=== PATIENT | female | born 1955 | race Caucasian/White ===

== ENCOUNTER → 2017-08-23 14:00 | Outpatient (CLI) | payer OTHER, SELFPAY ==
--- NOTE | 2017-08-23 | DI.RAD.S_ITS ---
PROCEDURE: XR HAND RT MIN 3V INDICATIONS: LEFT AND RIGHT HAND PAIN TECHNIQUE: 3 views of the hand(s) acquired. COMPARISON: None. FINDINGS: Bones: No fractures or dislocations. Carpal bones are normally aligned. No suspicious bony lesions. Mild degenerative joint disease at first carpometacarpal joint and first metacarpophalangeal joint. Soft tissues: No suspicious soft tissue calcifications. IMPRESSION: Mild degenerative joint disease. Dictated by: Danette Lyon M.D. on 08/23/2017 at 15:19 Approved by: Danette Lyon M.D. on 08/23/2017 at 15:19
--- NOTE | 2017-08-23 | DI.RAD.S_ITS ---
PROCEDURE: XR HAND LT MIN 3V INDICATIONS: LEFT AND RIGHT HAND PAIN TECHNIQUE: 3 views of the hand(s) acquired. COMPARISON: None. FINDINGS: Bones: No fractures or dislocations. Carpal bones are normally aligned. No suspicious bony lesions. There is mild degenerative joint disease at first carpal metacarpal joint. No bony erosions. Soft tissues: No suspicious soft tissue calcifications. IMPRESSION: Mild degenerative joint disease. Dictated by: Danette Lyon M.D. on 08/23/2017 at 15:19 Approved by: Danette Lyon M.D. on 08/23/2017 at 15:20
== END ==
PROVIDERS: Family Provider Internal Medicine; PCP Internal Medicine; Visit Provider Internal Medicine
DX: M18.0 Bilateral primary osteoarthritis of first carpometacarpal joints (principal); M19.041 Primary osteoarthritis, right hand; M79.641 Pain in right hand; M79.642 Pain in left hand
CPT/HCPCS: 73130

== ENCOUNTER → 2018-04-18 09:38 | Outpatient (CLI) | payer OTHER, SELFPAY | PROVIDERS: PCP Internal Medicine; Visit Provider Internal Medicine | DX: M81.0 Age-related osteoporosis without current pathological fracture (principal); Z78.0 Asymptomatic menopausal state; C50.919 Malignant neoplasm of unspecified site of unspecified female breast | CPT/HCPCS: 77080 ==

== ENCOUNTER → 2018-05-01 09:41 | Outpatient (CLI) | payer OTHER, SELFPAY ==
[2018-05-01 10:09] LABS: Estimated Glomerular Filt Rate > 60.0 mL/min (>60)
== END ==
PROVIDERS: PCP Internal Medicine; Visit Provider Internal Medicine
DX: C50.211 Malignant neoplasm of upper-inner quadrant of right female breast (principal)
CPT/HCPCS: 36415; 82565

== ENCOUNTER → 2018-10-10 11:49 | Outpatient (CLI) | payer OTHER, SELFPAY ==
[2018-10-10 13:52] LABS: Estimated Glomerular Filt Rate > 60.0 mL/min (>60)
== END ==
PROVIDERS: PCP Internal Medicine; Visit Provider Internal Medicine
DX: C50.211 Malignant neoplasm of upper-inner quadrant of right female breast (principal)
CPT/HCPCS: 36415; 82565

== ENCOUNTER → 2019-04-23 12:45 | Outpatient (CLI) | payer MEDICARE, SELFPAY | PROVIDERS: PCP Internal Medicine; Referring Provider Internal Medicine; Visit Provider Internal Medicine | DX: M81.0 Age-related osteoporosis without current pathological fracture (principal); Z78.0 Asymptomatic menopausal state; Z85.3 Personal history of malignant neoplasm of breast | CPT/HCPCS: 77080 ==

== ENCOUNTER → 2019-04-30 15:43 | Outpatient (ROUT) | payer MEDICARE, SELFPAY | PROVIDERS: PCP Internal Medicine; Visit Provider Student in an Organized Health Care Education/Training Program | DX: N39.0 Urinary tract infection, site not specified (principal) | CPT/HCPCS: 87086 ==

== ENCOUNTER → 2019-05-03 18:45 | Outpatient (ROUT) | payer MEDICARE, SELFPAY ==
[2019-05-03 19:12] LABS: Add Manual Diff / Slide Review NO; Basophils Absolute Auto 0 /uL (0-100); Basophils Percent Auto 0.6 % (0-2); Eosinophils Absolute Auto 100 /uL (0-450); Eosinophils Percent Auto 1.5 % (2-4); Hematocrit 41.6 % (36-46); Hemoglobin 13.8 g/dL (12.0-16.0); Lymphocytes Absolute Auto 1300 /uL (1100-4500); Lymphocytes Percent Auto 21.3 % (25-40); Mean Corpuscular HGB Conc 33.2 % (30-36); Mean Corpuscular Hemoglobin 30.6 PG (26-34); Mean Corpuscular Volume 92.1 fL (80-100); Monocytes Absolute Auto 400 /uL (0-900); Monocytes Percent Auto 7.2 % (3-14); Neutrophils Absolute Auto 4300 /uL (1500-7000); Neutrophils Percent Auto 69.4 % (50-75); Platelet Count 262 X10^3/uL (150-400); Red Blood Cell Count 4.52 X10^6/uL (4.0-5.2); Red Cell Distribution Width 13.3 % (11.6-14.8); White Blood Cell Count 6.2 X10^3/uL (4.5-11.0)
[2019-05-03 19:39] LABS: Aspartate Aminotransferase 34 IU/L (14-36); BUN Creatinine Ratio 28.2 (6-22); Blood Urea Nitrogen 22 mg/dL (7-17); Calcium 10.2 mg/dL (8.4-10.2); Carbon Dioxide 29 mmol/L (22-32); Chloride 102 mmol/L (98-107); Cholesterol 232 mg/dL (140-199); Estimated Glomerular Filt Rate > 60.0 mL/min (>60); Glucose 91 mg/dL (80-110); HDL Cholesterol 78 mg/dL (40-60); HEMOLYSIS < 15 (0-50); LDL Cholesterol Calculated 138 mg/dL (<100); Potassium 4.7 mmol/L (3.4-5.1); Sodium 137 mmol/L (137-145); Triglycerides 81 mg/dL (35-150)
[2019-05-03 20:09] LABS: TSH w/ Reflex to FT4 2.03 uIU/mL (0.47-4.68)
== END ==
PROVIDERS: PCP Internal Medicine; Visit Provider Internal Medicine
DX: R53.83 Other fatigue (principal); E78.2 Mixed hyperlipidemia; I10 Essential (primary) hypertension
CPT/HCPCS: 80048; 80061; 84443; 84450; 85025

== ENCOUNTER → 2019-09-12 18:44 | Outpatient (ROUT) | payer MEDICARE, SELFPAY | PROVIDERS: PCP Internal Medicine; Visit Provider Internal Medicine | DX: N39.0 Urinary tract infection, site not specified (principal) | CPT/HCPCS: 87086 ==

== ENCOUNTER → 2019-09-20 11:04 | Outpatient (CLI) | payer MEDICARE, SELFPAY ==
--- NOTE | 2019-09-20 | DI.MRI.S_ITS ---
PROCEDURE: MR LUMBAR SPINE WO/W CON INDICATIONS: symptoms involving the genitourinary system TECHNIQUE: Noncontrast sagittal T1 spin echo and T2 fast spin echo, sagittal STIR, axial T1 and T2 fast spin echo through the lumbar spine. In cases with scoliosis, additional coronal T2 fast spin echo may be performed. After the administration of contrast, sagittal and axial T1 spin echo with fat saturation through the lumbar spine. COMPARISON: [facility], , L-SPINE W&WO CONTRAST, 01/12/2017, 7:53. FINDINGS: Image quality: Excellent. Alignment and curvature: Mild levoconvex scoliotic curvature is noted. No focal AP alignment abnormality is seen. Marrow: Marrow is of normal overall signal. No acute vertebral body compression fractures. No suspicious marrow enhancement. Spinal cord: Conus medullaris terminates at the L1 level. Visualized spinal cord demonstrates normal signal, without suspicious enhancement. Paraspinous soft tissues: No paravertebral masses or abnormal enhancement. T12-L1: Moderate loss of disc height is seen. Loss of disc signal is seen. No significant disc bulge is seen. No significant neural foraminal or central canal narrowing can be seen. Stable from the prior study. L1-L2: Normal appearance. L2-L3: Mild loss of disc height is seen. Loss of disc signal is seen. Bridging endplate osteophytes are seen. Mild to moderate disc bulge is seen. Mild facet joint hypertrophy is seen. Moderate bilateral neural foraminal narrowing is seen, right worse than left. Mild central canal narrowing is seen. Mild progression compared to the prior. L3-L4: At least moderate loss of disc height is seen on the right side. Reactive marrow endplate changes are seen, which demonstrate mixed T1 weighted and T2-weighted signal, and are attributed to a combination of edema and fatty metaplasia (Modic type I and Modic type II changes). Moderate disc bulge is seen, which is eccentric to the right. Mild to moderate facet hypertrophy is seen. Mild to moderate bilateral neural foraminal narrowing is seen. Mild to moderate central canal narrowing is seen. There is been mild progression compared to 2017. L4-L5: Moderate loss of disc height is seen. Loss of disc signal is seen. Moderate disc bulge is seen, which is eccentric to the right. Mild to moderate facet hypertrophy is seen. There is at least moderate bilateral neural foraminal narrowing seen, left worse than right. There is a mild degree of compression seen upon the exiting nerve roots, left worse than right. Moderate central canal narrowing is seen. Mild progression compared to 2017. L5-S1: Krpk-nn-adofhgke loss of disc height and disc signal can be seen. At least moderate disc bulge is seen, which is eccentric to the left. Moderate facet hypertrophy is seen, left worse than right. At least moderate bilateral neural foraminal narrowing can be seen. There is a degree of compression seen upon the exiting nerve roots. Minimal central canal narrowing is seen. IMPRESSION: Multiple levels of lumbar spine degenerative change are seen, which are overall slightly progressed compared to 2017. No abnormal enhancement is seen. Dictated by: Ran Prakash M.D. on 09/20/2019 at 11:53 Approved by: Ran Prakash M.D. on 09/20/2019 at 11:58
== END ==
PROVIDERS: PCP Internal Medicine; Referring Provider Internal Medicine; Visit Provider Internal Medicine
DX: R39.9 Unspecified symptoms and signs involving the genitourinary system (principal); M51.36 Other intervertebral disc degeneration, lumbar region
CPT/HCPCS: 72158; A9579

== ENCOUNTER → 2019-10-25 09:26 | Outpatient (CLI) | payer MEDICARE, SELFPAY ==
[2019-10-25 10:17] LABS: Alanine Aminotransferase 21 IU/L (<35); Albumin 4.4 g/dL (3.5-5.0); Albumin Globulin Ratio 1.7 (1.0-2.8); Alkaline Phosphatase 53 U/L (38-126); Aspartate Aminotransferase 31 IU/L (14-36); Bilirubin Total 0.6 mg/dL (0.2-1.3); Blood Urea Nitrogen 21 mg/dL (7-17); Calcium 9.6 mg/dL (8.4-10.2); Carbon Dioxide 33 mmol/L (22-32); Chloride 103 mmol/L (98-107); Estimated Glomerular Filt Rate > 60.0 mL/min (>60); Globulin 2.6 g/dL (1.7-4.1); Glucose 100 mg/dL (80-110); HEMOLYSIS < 15 (0-50); Potassium 4.6 mmol/L (3.4-5.1); Sodium 140 mmol/L (137-145)
== END ==
PROVIDERS: PCP Internal Medicine; Referring Provider Internal Medicine; Visit Provider Internal Medicine
DX: C50.211 Malignant neoplasm of upper-inner quadrant of right female breast (principal)
CPT/HCPCS: 36415; 80053

== ENCOUNTER → 2020-04-24 12:49 | Outpatient (CLI) | payer MEDICARE, SELFPAY | PROVIDERS: PCP Internal Medicine; Referring Provider Internal Medicine; Visit Provider Internal Medicine | DX: M85.852 Other specified disorders of bone density and structure, left thigh (principal); Z78.0 Asymptomatic menopausal state; C50.211 Malignant neoplasm of upper-inner quadrant of right female breast; C50.212 Malignant neoplasm of upper-inner quadrant of left female breast; Z17.0 Estrogen receptor positive status [ER+] | CPT/HCPCS: 77080 ==

== ENCOUNTER → 2020-06-24 15:14 | Outpatient (ROUT) | payer MEDICARE, SELFPAY ==
[2020-06-24 15:39] LABS: Add Manual Diff / Slide Review NO; Basophils Absolute Auto 0 /uL (0-100); Basophils Percent Auto 0.5 % (0-2); Eosinophils Absolute Auto 200 /uL (0-450); Eosinophils Percent Auto 3.1 % (2-4); Hematocrit 39.2 % (36-46); Hemoglobin 13.1 g/dL (12.0-16.0); Lymphocytes Absolute Auto 1400 /uL (1100-4500); Lymphocytes Percent Auto 24.6 % (25-40); Mean Corpuscular HGB Conc 33.6 % (30-36); Mean Corpuscular Volume 92.3 fL (80-100); Monocytes Absolute Auto 400 /uL (0-900); Monocytes Percent Auto 6.4 % (3-14); Neutrophils Absolute Auto 3600 /uL (1500-7000); Neutrophils Percent Auto 65.4 % (50-75); Platelet Count 229 X10^3/uL (150-400); Red Blood Cell Count 4.25 X10^6/uL (4.0-5.2); Red Cell Distribution Width 13.3 % (11.6-14.8); White Blood Cell Count 5.5 X10^3/uL (4.5-11.0)
[2020-06-24 15:55] LABS: BUN Creatinine Ratio 42.2 (6-22); Blood Urea Nitrogen 27 mg/dL (7-17); Calcium 9.8 mg/dL (8.4-10.2); Carbon Dioxide 30 mmol/L (22-32); Chloride 102 mmol/L (98-107); Cholesterol 210 mg/dL (140-199); Estimated Glomerular Filt Rate > 60.0 mL/min (>60); Glucose 96 mg/dL (80-110); HDL Cholesterol 75 mg/dL (40-60); HEMOLYSIS < 15 (0-50); LDL Cholesterol Calculated 126 mg/dL (<100); Potassium 4.3 mmol/L (3.4-5.1); Sodium 138 mmol/L (137-145); Triglycerides 47 mg/dL (35-150)
[2020-06-24 16:09] LABS: Hemoglobin A1C% w Est Avg Glu 5.3 % (4.0-6.0)
[2020-06-24 16:31] LABS: Vitamin D 25 Hydroxy (D3) 39.1 ng/mL (30.0-100.0)
[2020-06-24 16:37] LABS: Vitamin B12 995 pg/mL (239-931)
[2020-06-24 17:40] LABS: TSH w/ Reflex to FT4 1.21 uIU/mL (0.47-4.68)
[2020-06-25 14:16] LABS: Albumin 3.9 g/dL (2.9-4.4); Alpha-1-Globulin 0.3 g/dL (0.0-0.4); Alpha-2-Globulin 0.7 g/dL (0.4-1.0); Gamma Globulin 0.9 g/dL (0.4-1.8); Protein, Total 6.9 g/dL (6.0-8.5)
== END ==
PROVIDERS: PCP Internal Medicine; Visit Provider Internal Medicine
DX: I10 Essential (primary) hypertension (principal); E53.8 Deficiency of other specified B group vitamins; E03.9 Hypothyroidism, unspecified; D47.2 Monoclonal gammopathy; R73.01 Impaired fasting glucose; E78.2 Mixed hyperlipidemia; E55.9 Vitamin D deficiency, unspecified
CPT/HCPCS: 80048; 80061; 82306; 82607; 83036; 84155; 84165; 84443; 85025

== ENCOUNTER → 2020-07-24 09:46 | Outpatient (CLI) | payer MEDICARE, SELFPAY ==
[2020-07-24 11:26] LABS: Alanine Aminotransferase 20 IU/L (<35); Albumin 4.1 g/dL (3.5-5.0); Albumin Globulin Ratio 1.5 (1.0-2.8); Alkaline Phosphatase 73 U/L (38-126); Aspartate Aminotransferase 28 IU/L (14-36); BUN Creatinine Ratio 31.3 (6-22); Bilirubin Total 0.5 mg/dL (0.2-1.3); Blood Urea Nitrogen 21 mg/dL (7-17); Calcium 9.9 mg/dL (8.4-10.2); Carbon Dioxide 30 mmol/L (22-32); Chloride 102 mmol/L (98-107); Estimated Glomerular Filt Rate > 60.0 mL/min (>60); Globulin 2.8 g/dL (1.7-4.1); Glucose 95 mg/dL (80-110); HEMOLYSIS < 15 (0-50); Potassium 4.7 mmol/L (3.4-5.1); Sodium 138 mmol/L (137-145); Total Protein 6.9 g/dL (6.3-8.2)
== END ==
PROVIDERS: PCP Internal Medicine; Referring Provider Internal Medicine; Visit Provider Internal Medicine
DX: C50.211 Malignant neoplasm of upper-inner quadrant of right female breast (principal); C50.212 Malignant neoplasm of upper-inner quadrant of left female breast; Z17.0 Estrogen receptor positive status [ER+]
CPT/HCPCS: 36415; 80053

== ENCOUNTER → 2020-11-17 10:02 | Outpatient (CLI) | payer MEDICARE, OTHER, SELFPAY ==
[2020-11-17 16:06] LABS: Estimated Glomerular Filt Rate > 60.0 mL/min (>60)
== END ==
PROVIDERS: PCP Internal Medicine; Referring Provider Student in an Organized Health Care Education/Training Program; Visit Provider Student in an Organized Health Care Education/Training Program
DX: N89.8 Other specified noninflammatory disorders of vagina (principal)
CPT/HCPCS: 36415; 82565

== ENCOUNTER → 2020-11-20 11:53 | Outpatient (CLI) | payer MEDICARE, OTHER, SELFPAY ==
--- NOTE | 2020-11-20 | DI.CT.S_ITS ---
PROCEDURE: CT ABDOMEN PELVIS W CON INDICATIONS: pelvic mass TECHNIQUE: After the administration of oral and IV contrast, axial sections were acquired from the lung bases to the pubic symphysis. Coronal and sagittal reformats were performed. For radiation dose reduction, the following was used: automated exposure control, adjustment of mA and/or kV according to patient size. COMPARISON: None. FINDINGS: Image quality: Excellent. Lung bases: No consolidation or pleural effusion. Heart: No significant findings. ABDOMEN: Liver: Normal contour. 1.6 cm hypoattenuating lesion in the left hepatic lobe, likely representing a cyst. Gallbladder: No wall thickening or pericholecystic fluid appreciated. Biliary ducts: No appreciable dilatation. Pancreas: Normal contour without contour deforming mass. Spleen: Normal contour. A splenule is noted. Adrenal Glands: No nodularity Kidneys and Ureters: Symmetric enhancement without evidence of obstructive uropathy. Right lower pole cortical hypoattenuating lesion, likely representing a cyst. Stomach and Bowel: No evidence of intestinal obstruction. Normal appendix. Sigmoid diverticulosis. Peritoneum: No abnormal intraperitoneal fluid. No free air. Ventral Wall: No hernia. Abdominal Nodes: No retroperitoneal or mesenteric adenopathy by size criteria. Vessels: Aorta and inferior vena cava are normal in size. PELVIS: Pelvic Organs: No significant abnormality. Bladder: Smooth contour. Pelvic Nodes: No enlarged lymph nodes. Miscellaneous: No inguinal hernias are seen. Bones: No acute abnormality. Multilevel degenerative changes of the lumbar spine most prominent at L3 through S1. IMPRESSION: No significant abnormality. Dictated by: Solitario Vásquez M.D. on 11/20/2020 at 13:58 Approved by: Solitario Vásquez M.D. on 11/20/2020 at 14:04
== END ==
PROVIDERS: PCP Internal Medicine; Referring Provider Student in an Organized Health Care Education/Training Program; Visit Provider Student in an Organized Health Care Education/Training Program
DX: N89.8 Other specified noninflammatory disorders of vagina (principal); K76.9 Liver disease, unspecified; K57.30 Diverticulosis of large intestine without perforation or abscess without bleeding
CPT/HCPCS: 74177

== ENCOUNTER → 2021-01-02 10:25 | Outpatient (CLI) | payer MEDICARE, OTHER, SELFPAY | PROVIDERS: PCP Internal Medicine; Visit Provider Physician Assistant | DX: N34.3 Urethral syndrome, unspecified (principal) | CPT/HCPCS: 87077; 87086; 87186 ==

== ENCOUNTER → 2021-02-26 10:42 | Outpatient (CLI) | payer MEDICARE, OTHER, SELFPAY ==
[2021-02-26 12:09] LABS: Alanine Aminotransferase 18 IU/L (<35); Albumin 4.3 g/dL (3.5-5.0); Albumin Globulin Ratio 1.7 (1.0-2.8); Alkaline Phosphatase 56 U/L (38-126); Aspartate Aminotransferase 26 IU/L (14-36); BUN Creatinine Ratio 27.5 (6-22); Bilirubin Total 0.4 mg/dL (0.2-1.3); Blood Urea Nitrogen 19 mg/dL (7-17); Calcium 9.8 mg/dL (8.4-10.2); Carbon Dioxide 31 mmol/L (22-32); Chloride 104 mmol/L (98-107); Estimated Glomerular Filt Rate > 60.0 mL/min (>60); Globulin 2.6 g/dL (1.7-4.1); Glucose 116 mg/dL (80-110); HEMOLYSIS < 15 (0-50); Potassium 4.7 mmol/L (3.4-5.1); Sodium 139 mmol/L (137-145); Total Protein 6.9 g/dL (6.3-8.2)
== END ==
PROVIDERS: PCP Internal Medicine; Referring Provider Internal Medicine; Visit Provider Internal Medicine
DX: M81.0 Age-related osteoporosis without current pathological fracture (principal); C50.211 Malignant neoplasm of upper-inner quadrant of right female breast; Z17.0 Estrogen receptor positive status [ER+]; C50.212 Malignant neoplasm of upper-inner quadrant of left female breast
CPT/HCPCS: 36415; 80053

== ENCOUNTER → 2021-05-13 14:03 | Outpatient (CLI) | payer MEDICARE, OTHER, SELFPAY | PROVIDERS: PCP Internal Medicine; Referring Provider Internal Medicine; Visit Provider Internal Medicine | DX: M81.0 Age-related osteoporosis without current pathological fracture (principal) | CPT/HCPCS: 77080 ==

== ENCOUNTER → 2021-08-21 11:44 | Outpatient (CLI) | payer MEDICARE, OTHER, SELFPAY ==
[2021-08-21 13:32] LABS: Alanine Aminotransferase 22 IU/L (<35); Albumin 4.5 g/dL (3.5-5.0); Albumin Globulin Ratio 1.7 (1.0-2.8); Alkaline Phosphatase 69 U/L (38-126); Aspartate Aminotransferase 30 IU/L (14-36); BUN Creatinine Ratio 33.8 (6-22); Bilirubin Total 0.4 mg/dL (0.2-1.3); Blood Urea Nitrogen 24 mg/dL (7-17); Calcium 10.1 mg/dL (8.4-10.2); Carbon Dioxide 30 mmol/L (22-32); Chloride 101 mmol/L (98-107); Estimated Glomerular Filt Rate > 60 mL/min (>60); Globulin 2.6 g/dL (1.7-4.1); Glucose 95 mg/dL (80-110); HEMOLYSIS < 15 (0-50); Potassium 4.7 mmol/L (3.4-5.1); Sodium 139 mmol/L (137-145); Total Protein 7.1 g/dL (6.3-8.2)
== END ==
PROVIDERS: PCP Internal Medicine; Referring Provider Internal Medicine; Visit Provider Internal Medicine
DX: M81.0 Age-related osteoporosis without current pathological fracture (principal); C50.211 Malignant neoplasm of upper-inner quadrant of right female breast; Z17.0 Estrogen receptor positive status [ER+]; C50.212 Malignant neoplasm of upper-inner quadrant of left female breast
CPT/HCPCS: 36415; 80053

== ENCOUNTER → 2021-11-05 08:49 | Outpatient (CLI) | payer MEDICARE, OTHER, SELFPAY | PROVIDERS: PCP Internal Medicine; Visit Provider Nurse Practitioner Family | DX: J02.9 Acute pharyngitis, unspecified (principal) | CPT/HCPCS: 87070 ==

== ENCOUNTER → 2022-03-08 11:44 | Outpatient (CLI) | payer MEDICARE, OTHER, SELFPAY ==
[2022-03-08 12:55] LABS: Alanine Aminotransferase 23 IU/L (<35); Albumin 4.2 g/dL (3.5-5.0); Albumin Globulin Ratio 1.4 (1.0-2.8); Alkaline Phosphatase 70 U/L (38-126); Aspartate Aminotransferase 26 IU/L (14-36); BUN Creatinine Ratio 34.4 (6-22); Bilirubin Total 0.3 mg/dL (0.2-1.3); Blood Urea Nitrogen 21 mg/dL (7-17); Carbon Dioxide 29 mmol/L (22-32); Chloride 102 mmol/L (98-107); Estimated Glomerular Filt Rate > 60 mL/min (>60); Globulin 2.9 g/dL (1.7-4.1); Glucose 94 mg/dL (80-110); HEMOLYSIS < 15 (0-50); Potassium 4.6 mmol/L (3.4-5.1); Sodium 137 mmol/L (137-145); Total Protein 7.1 g/dL (6.3-8.2)
== END ==
PROVIDERS: PCP Internal Medicine; Referring Provider Internal Medicine; Visit Provider Internal Medicine
DX: M81.0 Age-related osteoporosis without current pathological fracture (principal); C50.211 Malignant neoplasm of upper-inner quadrant of right female breast; Z17.0 Estrogen receptor positive status [ER+]; C50.212 Malignant neoplasm of upper-inner quadrant of left female breast
CPT/HCPCS: 36415; 80053

== ENCOUNTER → 2022-05-17 12:51 | Outpatient (CLI) | payer MEDICARE, OTHER, SELFPAY ==
--- NOTE | 2022-05-17 13:06 | DI.DEXA.S_ITS ---
Bone Density Report Name: TIERRA CORRALES Age: 66 Sex: Female Ethnicity: White Date of : 1955 Indication: osteopenia; monitoring treatment; Referring Provider: UNSPECIFIED Study: Bone densitometry was performed. Exam Date: May 17, 2022 Accession number: [id number] Bone Density: Region BMD T-score Z-score Classification AP Spine(L1-L4) 1.217 1.5 3.4 Normal Femoral Neck (Left) 0.588 -2.4 -0.7 Osteopenia Total Hip (Left) 0.720 -1.8 -0.5 Osteopenia Femoral Neck (Right) 0.606 -2.2 -0.6 Osteopenia Total Hip (Right) 0.798 -1.2 0.1 Osteopenia Total Hip Mean 0.759 -1.5 -0.2 Osteopenia World Health Organization criteria for BMD impression classify patients as: Normal (T-score at or above -1.0), Osteopenia (T-score between -1.0 and -2.5), or Osteoporosis (T-score at or below -2.5). 10-year Fracture Risk: FRAX not reported because: Treated for osteoporosis Previous Exams: -- Region Exam Age BMD T-score BMD Change BMD Change Date g/cm2 vs Baseline vs Previous -- AP Spine (L1-L4) 05/17/2022 66 1.217 1.5 -0.050 (-4.0%)# -0.050 (-4.0%)# 05/13/2021 65 1.267 2.0 Total Hip(Left) 05/17/2022 66 0.720 -1.8 -0.028 (-3.7%)# -0.028 (-3.7%)# 05/13/2021 65 0.749 -1.6 Total Hip(Right) 05/17/2022 66 0.798 -1.2 0.014 (1.8%)# 0.014 (1.8%)# 05/13/2021 65 0.785 -1.3 -- *Denotes significance at 95% confidence level, LSC for AP Spine = 0.022 g/cm2, LSC for Total Hip = 0.027 g/cm2 # Denotes dissimilar scan types or analysis methods Impression: The patient has low bone mass, based on the Left Femoral Neck T-score. No significant bone loss was observed. Discussion: PATIENT UNDER TREATMENT WITH NO SIGNIFICANT BMD LOSS SINCE LAST EXAM. In an untreated patient, BMD typically declines with age. A lack of decline or gain is usually a sign that treatment is efficacious and fracture risk is reduced. It is important to ask patients whether they are taking their medications and to encourage continued and appropriate compliance with their osteoporosis therapies to reduce fracture risk. It is also important to review their risk factors and encourage appropriate calcium and vitamin D intakes, exercise, fall prevention and other lifestyle measures. Follow-Up: Consider a repeat BMD and Vertebral Fracture Assessment (VFA) exam in 2 years or sooner if medically necessary, to reassess this patient's status. Reported by: CHRISTIANA ANDERSEN M.D. on 05/17/2022 1:21:00 PM.
== END ==
PROVIDERS: PCP Internal Medicine; Referring Provider Internal Medicine; Visit Provider Internal Medicine
DX: M81.0 Age-related osteoporosis without current pathological fracture (principal); C50.212 Malignant neoplasm of upper-inner quadrant of left female breast; C50.211 Malignant neoplasm of upper-inner quadrant of right female breast; Z78.0 Asymptomatic menopausal state; Z17.0 Estrogen receptor positive status [ER+]; Z79.83 Long term (current) use of bisphosphonates
CPT/HCPCS: 77080

== ENCOUNTER → 2023-05-24 09:43 | Outpatient (CLI) | payer MEDICARE, OTHER, SELFPAY ==
--- NOTE | 2023-05-24 09:44 | DI.RAD.S_ITS ---
Bone Density Report Name: TIERRA CORRALES Age: 67 Sex: Female Ethnicity: White Date of : 1955 Indication: osteopenia; monitoring treatment; Referring Provider: BINDU NASSAR Study: Bone densitometry was performed. Exam Date: May 24, 2023 Accession number: [id number] Bone Density: Region BMD T-score Z-score Classification AP Spine(L2, L3, L4) 1.220 1.3 3.3 Normal Femoral Neck (Left) 0.664 -1.7 0.0 Osteopenia Total Hip (Left) 0.779 -1.3 0.0 Osteopenia Femoral Neck (Right) 0.607 -2.2 -0.5 Osteopenia Total Hip (Right) 0.789 -1.3 0.1 Osteopenia Total Hip Mean 0.784 -1.3 0.1 Osteopenia World Health Organization criteria for BMD impression classify patients as: Normal (T-score at or above -1.0), Osteopenia (T-score between -1.0 and -2.5), or Osteoporosis (T-score at or below -2.5). 10-year Fracture Risk: FRAX not reported because: Treated for osteoporosis Previous Exams: -- Region Exam Age BMD T-score BMD Change BMD Change Date g/cm2 vs Baseline vs Previous -- AP Spine (L2-L4) 05/24/2023 67 1.220 1.3 0.027 (2.3%)# -0.042 (-3.3%)* 05/17/2022 66 1.261 1.7 0.069 (5.8%)# -0.031 (-2.4%)# 05/13/2021 65 1.292 1.9 0.100 (8.4%)# 0.019 (1.5%)# 04/24/2020 64 1.273 1.8 0.081 (6.8%)* 0.045 (3.7%)* 04/23/2019 63 1.227 1.3 0.035 (3.0%)* -0.019 (-1.6%) 04/18/2018 62 1.247 1.5 0.055 (4.6%)* 0.055 (4.6%)* 09/15/2016 61 1.192 1.0 Total Hip(Left) 05/24/2023 67 0.779 -1.3 0.087 (12.5%)# 0.058 (8.1%)* 05/17/2022 66 0.720 -1.8 0.028 (4.1%)# -0.028 (-3.7%)# 05/13/2021 65 0.749 -1.6 0.057 (8.2%)# 0.021 (2.8%)# 04/24/2020 64 0.728 -1.8 0.036 (5.2%)* 0.030 (4.2%)* 04/23/2019 63 0.698 -2.0 0.006 (0.9%) -0.005 (-0.8%) 04/18/2018 62 0.704 -2.0 0.012 (1.7%) 0.012 (1.7%) 09/15/2016 61 0.692 -2.0 Total Hip(Right) 05/24/2023 67 0.789 -1.3 0.002 (0.2%)# -0.009 (-1.1%) 05/17/2022 66 0.798 -1.2 0.011 (1.4%)# 0.014 (1.8%)# 05/13/2021 65 0.785 -1.3 -0.003 (-0.4%)# -0.019 (-2.4%)# 04/24/2020 64 0.804 -1.1 0.016 (2.1%) 0.023 (3.0%) 04/23/2019 63 0.781 -1.3 -0.007 (-0.9%) -0.003 (-0.4%) 04/18/2018 62 0.784 -1.3 -0.004 (-0.5%) -0.004 (-0.5%) 09/15/2016 61 0.788 -1.3 -- *Denotes significance at 95% confidence level, LSC for AP Spine = 0.022 g/cm2, LSC for Total Hip = 0.027 g/cm2 Rate of change results reflect vertebral levels common to all scans # Denotes dissimilar scan types or analysis methods Impression: The patient has low bone mass, based on the Right Femoral Neck T-score. The BMD for the AP Spine (L2-L4) decreased, changing by -3.3% since the last DXA exam. Discussion: SIGNIFICANT BONE LOSS OBSERVED. Adherence to therapy (including calcium and vitamin D intake) should be assessed. If compliance is not a factor, review management and exclusion of secondary causes of bone loss. It is important to ask patients whether they are taking their medications and to encourage continued and appropriate compliance with their osteoporosis therapies to reduce fracture risk. It is also important to review their risk factors and encourage appropriate calcium and vitamin D intakes, exercise, fall prevention and other lifestyle measures. Follow-Up: Consider a repeat BMD and Vertebral Fracture Assessment (VFA) exam in 2 years or sooner if medically necessary, to reassess this patient's status. Reported by: JH CASTILLO MD on 05/24/2023 10:06:00 AM.
== END ==
LOC: RAD 09:44
PROVIDERS: PCP Internal Medicine; Referring Provider Internal Medicine; Visit Provider Internal Medicine
DX: M81.0 Age-related osteoporosis without current pathological fracture (principal); C50.811 Malignant neoplasm of overlapping sites of right female breast; Z17.0 Estrogen receptor positive status [ER+]; Z78.0 Asymptomatic menopausal state; Z79.83 Long term (current) use of bisphosphonates
CPT/HCPCS: 77080

== ENCOUNTER → 2023-06-23 09:02 | Outpatient (CLI) | payer MEDICARE, OTHER, SELFPAY ==
[2023-06-23 10:17] LABS: Alanine Aminotransferase 19 IU/L (<35); Albumin 4.3 g/dL (3.5-5.0); Albumin Globulin Ratio 1.9 (1.0-2.8); Alkaline Phosphatase 69 U/L (38-126); Aspartate Aminotransferase 24 IU/L (14-36); BUN Creatinine Ratio 36.5 (6-22); Bilirubin Total 0.6 mg/dL (0.2-1.3); Blood Urea Nitrogen 23 mg/dL (7-17); Calcium 9.4 mg/dL (8.4-10.2); Carbon Dioxide 29 mmol/L (22-32); Chloride 105 mmol/L (98-107); Estimated Glomerular Filt Rate > 60 mL/min (>60); Globulin 2.3 g/dL (1.7-4.1); Glucose 96 mg/dL (80-110); HEMOLYSIS < 15 (0-50); Potassium 4.8 mmol/L (3.4-5.1); Sodium 138 mmol/L (137-145); Total Protein 6.6 g/dL (6.3-8.2)
== END ==
PROVIDERS: PCP Internal Medicine; Referring Provider Internal Medicine; Visit Provider Internal Medicine
DX: M85.80 Other specified disorders of bone density and structure, unspecified site (principal)
CPT/HCPCS: 36415; 80053

== ENCOUNTER 2023-11-23 08:47 | Day surgery (SDC) | payer MEDICARE, OTHER, SELFPAY ==
[2023-11-23 09:08] VITALS: BP 150/66; PULSE 99; RESP 16; TEMP 36.6; O2SAT 100
--- NOTE | 2023-11-23 09:19 | P.HP_ITS ---
History of Present Illness History of Present Illness Date Patient Seen: 11/23/23 Chief complaint: Colonoscopy Narrative: History of colon polyps [facility] Medical History Vasomotor rhinitis Polyneuropathy, unspecified History of colonic polyps History of right breast cancer Osteopenia Chronic low back pain Essential hypertension Mixed hyperlipidemia Social History Smoking Status: Never smoker alcohol intake: current Meds Home Medications and Allergies Home Medications Medication Instructions Recorded Confirmed Type nabumetone 750 mg tablet 750 mg PO BID PRN back pain #60 10/23/22 10/25/23 Rx tabs atorvastatin 20 mg tablet 20 mg PO BEDTIME #90 tabs 02/22/23 10/25/23 Rx lisinopril 10 mg tablet 10 mg PO DAILY #90 tabs 02/22/23 10/25/23 Rx alpha lipoic acid 200 mg capsule 600 mg PO DAILY 05/11/23 10/25/23 History ascorbic acid (vitamin C) 1,000 mg 1,000 mg PO DAILY 05/11/23 10/25/23 History tablet calcium phosphate-vitamin D3 1 tab PO DAILY 05/11/23 10/25/23 History [Citracal-D3 Gummies] cartilage 40 mg-collagen II-boron 1 tab PO DAILY 05/11/23 10/25/23 History 5 mg-hyaluronate sod 3.3 mg tablet (Move Free Ultra Triple Action (boron)) chlorpheniramine maleate 4 mg 2 mg PO Q8H PRN 05/11/23 10/25/23 History tablet cholecalciferol (vitamin D3) 50 50 mcg PO DAILY 05/11/23 10/25/23 History mcg (2,000 unit) capsule cyanocobalamin (vitamin B-12) 1,000 mcg PO DAILY 05/11/23 10/25/23 History 1,000 mcg capsule diclofenac sodium 1 % topical gel 2 g topical DAILY PRN 05/11/23 10/25/23 History duloxetine 30 mg capsule,delayed 30 mg PO BID #180 caps 05/11/23 10/25/23 Rx release flaxseed oil 1,000 mg capsule 1,000 mg PO DAILY 05/11/23 10/25/23 History ipratropium bromide 21 mcg (0.03 2 spray intranasal BID-TID PRN 05/11/23 10/25/23 History %) nasal spray magnesium oxide 400 mg PO DAILY 05/11/23 10/25/23 History naproxen sodium [Aleve] 750 mg PO DAILY PRN 05/11/23 10/25/23 History omega-3 fatty acids [Fish Oil] 1 cap PO DAILY 05/11/23 10/25/23 History sumatriptan succinate [Imitrex] 1 tab PO DAILY PRN 05/11/23 10/25/23 History tretinoin 0.1 % topical cream 1 applic topical BEDTIME 05/11/23 10/25/23 History turmeric 1 cap PO DAILY 05/11/23 10/25/23 History vitamin B complex [B Complex Super] 1 tab PO DAILY 05/11/23 10/25/23 History Allergies Allergy/AdvReac Type Severity Reaction Status Date / Time acetaminophen [From Vicodin] Allergy Severe Vomiting Verified 10/25/23 11:08 hydrocodone [From Vicodin] Allergy Severe Vomiting Verified 10/25/23 11:08 Penicillins Allergy Severe Hives Verified 10/25/23 11:08 erythromycin base Allergy Intermediate Diarrhea Verified 10/25/23 11:08 gabapentin AdvReac Intermediate Dizziness Verified 10/25/23 11:08 Exam Vital Signs (past 8 hours): - 11/23/23 09:08 Temperature 97.9 F Pulse Rate 99 H Respiratory Rate 16 Blood Pressure 150/66 H Pulse Oximetry 100 Oxygen Delivery Method Room Air Oxygen Delivery Method Room Air Narrative Exam Narrative: oropharynx free of lesions Chest clear to auscultation percussion Assessment & Plan Assessment & Plan narrative: history of colon polyps need for follow-up colonoscopy. Risks, benefits, alternatives have been explained. Time-Based Coding :: [TOTAL MINUTES] spent with patient and on the chart (including review of chart, obtaining history, exam, reviewing outside data, placing orders, documenting exam and treatment plan, and counseling patient) on [DATE].
--- NOTE | 2023-11-23 09:20 | PM.OP.COLON ---
Operative Date/Time/Diagnoses Date of procedure: 11/23/23 Pre-op diagnosis: See indication and findings Procedure & Clinicians Study performed: colonoscopy Indications: history of polyps Surgeon: Elian Vu Procedure Notes Procedure in detail: after informed consent was obtained the patient was placed in left lateral decubitus position. The video colonoscope was introduced the rectum slowly advanced cecum. Bone slow withdrawal mucosa was carefully examined. The scope was removed. The patient tolerated procedure well. Blood loss none Complications none Sedation mac Findings 1. Uazp-ol-cifihwtl sigmoid diverticulosis 2. Otherwise negative colonoscopy to cecum Patient should have follow-up colonoscopy in 7 years
[2023-11-23 10:06] VITALS: BP 150/80; PULSE 87; RESP 14; TEMP 36.2; O2SAT 98
[2023-11-23] MEDS: LACTATED RINGERS 1,000 ML 42 ML IV (10:09)
[2023-11-23 10:10] VITALS: BP 151/79; PULSE 84; RESP 16; O2SAT 98
[2023-11-23 10:14] VITALS: BP 144/75; PULSE 78; RESP 14; O2SAT 99
[2023-11-23 10:15] VITALS: BP 141/77; PULSE 71; RESP 14; TEMP 36.3; O2SAT 98
== END 2023-11-23 10:29 | disposition home or self-care (01) ==
PROVIDERS: PCP Internal Medicine; Referring Provider Internal Medicine Gastroenterology; Visit Provider Internal Medicine Gastroenterology
PROC: 0DJD8ZZ Inspection of Lower Intestinal Tract, Via Natural or Artificial Opening Endoscopic (ICD-10-PCS; CPT 45378; principal; 2023-11-23 10:00)
DX: Z12.11 Encounter for screening for malignant neoplasm of colon (principal); Z86.0100 Personal history of colon polyps, unspecified; K57.30 Diverticulosis of large intestine without perforation or abscess without bleeding
CPT/HCPCS: G0105; J2704

== ENCOUNTER → 2023-12-13 10:31 | Outpatient (CLI) | payer MEDICARE, OTHER, SELFPAY ==
[2023-12-13 11:45] LABS: Hematocrit 39.7 % (36-46); Hemoglobin 13.3 g/dL (12.0-16.0); Mean Corpuscular HGB Conc 33.5 % (30-36); Mean Corpuscular Hemoglobin 30.6 PG (26-34); Mean Corpuscular Volume 91.4 fL (80-100); Platelet Count 264 X10^3/uL (150-400); Red Blood Cell Count 4.34 X10^6/uL (4.0-5.2); Red Cell Distribution Width 12.8 % (11.6-14.8)
[2023-12-13 11:59] LABS: Alanine Aminotransferase 20 IU/L (<35); Albumin 4.5 g/dL (3.5-5.0); Albumin Globulin Ratio 1.8 (1.0-2.8); Alkaline Phosphatase 64 U/L (38-126); Aspartate Aminotransferase 27 IU/L (14-36); Bilirubin Total 0.5 mg/dL (0.2-1.3); Blood Urea Nitrogen 18 mg/dL (7-17); Calcium 9.9 mg/dL (8.4-10.2); Carbon Dioxide 31 mmol/L (22-32); Chloride 103 mmol/L (98-107); Cholesterol 211 mg/dL (140-199); Estimated Glomerular Filt Rate > 60 mL/min (>60); Globulin 2.5 g/dL (1.7-4.1); Glucose 93 mg/dL (80-110); HDL Cholesterol 74 mg/dL (40-60); HEMOLYSIS < 15 (0-50); LDL Cholesterol Calculated 120 mg/dL (<100); Potassium 4.6 mmol/L (3.4-5.1); Sodium 139 mmol/L (137-145); Triglycerides 85 mg/dL (35-150)
[2023-12-13 12:31] LABS: TSH w/ Reflex to FT4 0.44 uIU/mL (0.47-4.68)
[2023-12-13 13:02] LABS: Free T4, Direct Thyroxine 0.94 ng/dL (0.78-2.19)
== END ==
PROVIDERS: PCP Internal Medicine; Referring Provider Internal Medicine; Visit Provider Internal Medicine
DX: I10 Essential (primary) hypertension (principal); E78.2 Mixed hyperlipidemia; Z85.3 Personal history of malignant neoplasm of breast; M54.42 Lumbago with sciatica, left side; M85.80 Other specified disorders of bone density and structure, unspecified site; G62.9 Polyneuropathy, unspecified
CPT/HCPCS: 36415; 80053; 80061; 84439; 84443; 85027

== ENCOUNTER → 2024-05-28 10:14 | Outpatient (CLI) | payer MEDICARE, OTHER, SELFPAY | PROVIDERS: PCP Internal Medicine; Visit Provider Nurse Practitioner Family | DX: J02.9 Acute pharyngitis, unspecified (principal) | CPT/HCPCS: 87070 ==

== ENCOUNTER → 2024-06-05 09:10 | Outpatient (CLI) | payer MEDICARE, OTHER, SELFPAY ==
--- NOTE | 2024-06-05 09:11 | DI.MG.S_ITS ---
MM screening mammo BI: 06/05/2024. BI-RADS: 2 CLINICAL: 68-year old female for bilateral screening mammogram. No Tyrer-Cuzick risk score calculation due to the patient's personal history of breast cancer. Patient reports a history of right breast carcinoma diagnosed at age 65. Status-post right lumpectomy with hormonal therapy. No first-degree family history of breast cancer. The patient had a prior right breast biopsy. PRIOR EXAMS: 05/31/23, 05/27/22, 05/26/21. MAMMOGRAPHY TECHNIQUE: 2D and 3D (tomosynthesis) digital mammographic views obtained, with additional images as needed for full coverage. Current study was also evaluated with a Computer Aided Detection (CAD) system. DENSITY C. The breasts are heterogeneously dense, which may obscure small masses. MAMMOGRAPHY FINDINGS Right: Benign-appearing calcification and post-surgical changes noted on the right. There are no suspicious masses, calcifications, or other findings in the breast. No significant change from comparison. Left: No suspicious mass, asymmetry, microcalcification, or other abnormality seen. No significant change from comparison. IMPRESSION: Right * No evidence of malignancy with benign findings. Left * No evidence of malignancy. RECOMMENDATIONS Bilateral * Annual screening mammography. OVERALL ASSESSMENT CATEGORY BI-RADS-2: Benign. The [employer] recommends annual screening mammography beginning at age 40 for women with average risk of breast cancer. ELECTRONICALLY SIGNED: Liay Moffett M.D. on 06/06/2024 at 11:38:31 AM PT Interpreting Station ID: [id number]
--- NOTE | 2024-06-05 09:11 | DI.RAD.S_ITS ---
PROCEDURE: XR DEXA AXIAL SKELETON INDICATIONS: osteoporosis COMPARISON: [facility], , XR DEXA AXIAL SKELETON, 05/24/2023, 9:53. FINDINGS: Lumbar Spine: Bone mineral density 1.256 g/cm2, T score 1.6. There is interval 3 percent increase in total lumbar spine bone mineral density. Left Femoral Neck: Bone mineral density 0.603 g/cm2, T score-2.2. There is interval 9.2 percent decrease in left femoral neck bone mineral density. Left Hip: Bone mineral density 0.807 g/cm2, T score -1.1. There is interval 3.7 percent increase in total left hip bone mineral density. Fracture Risk Calculation (when applicable): 10-year fracture risk of a major osteoporotic fracture 12 percent and of a hip fracture 2.3 percent. (T score greater or equal to -1.0 to: NORMAL) (T score from -1.1 to -2.4: OSTEOPENIA) (T score less than or equal to -2.5: OSTEOPOROSIS) IMPRESSION: Osteopenia with increased 10 year fracture risk. Follow-up guidelines as follows: Osteoporosis: Consider a repeat DEXA and Vertebral Fracture Assessment (VFA) exam in 2 years or sooner if medically necessary, to reassess this patient's status. Osteopenia: Consider a repeat DEXA in 2-3 years to reassess this patient's status, or if there is a new clinical indication. Normal: Consider a repeat DEXA in 5 years or sooner, or if there is a new clinical indication. All treatment decisions require clinical judgment and consideration of individual patient factors, including patient preferences, comorbidities, previous drug use, risk factors not captured in the FRAX model (e.g., frailty, falls, vitamin D deficiency, increased bone turnover, interval significant decline in bone density ) and possible under- or over-estimation of fracture risk by FRAX. In addition, the NOF Guide recommends that FDA-approved medical therapies be considered in postmenopausal women and men age >= 50 years with a: * Hip or vertebral (clinical or morphometric) fracture * T-score of <=-2.5 at the spine or hip * Ten-year fracture probability by FRAX of >= 3% for hip fracture or >=20% for major osteoporotic fracture. Dictated by: Chato Carlos M.D. on 06/05/2024 at 12:35 Approved by: Chato Carlos M.D. on 06/05/2024 at 12:36
== END ==
LOC: MAMMO 09:11
PROVIDERS: PCP Internal Medicine; Referring Provider Internal Medicine; Visit Provider Internal Medicine
DX: Z12.31 Encounter for screening mammogram for malignant neoplasm of breast (principal); M85.89 Other specified disorders of bone density and structure, multiple sites; Z85.3 Personal history of malignant neoplasm of breast; R92.333 Mammographic heterogeneous density, bilateral breasts
CPT/HCPCS: 77063; 77067; 77080

== ENCOUNTER → 2024-06-25 07:45 | Outpatient (CLI) | payer MEDICARE, OTHER, SELFPAY ==
[2024-06-25 09:01] LABS: Alanine Aminotransferase 22 IU/L (<35); Albumin 4.6 g/dL (3.5-5.0); Alkaline Phosphatase 68 U/L (38-126); Aspartate Aminotransferase 32 IU/L (14-36); BUN Creatinine Ratio 34.3 (6-22); Bilirubin Total 0.7 mg/dL (0.2-1.3); Blood Urea Nitrogen 23 mg/dL (7-17); Calcium 9.5 mg/dL (8.4-10.2); Carbon Dioxide 29 mmol/L (22-32); Chloride 104 mmol/L (98-107); Estimated Glomerular Filt Rate > 60 mL/min (>60); Globulin 2.3 g/dL (1.7-4.1); Glucose 97 mg/dL (70-99); HEMOLYSIS < 15 (0-50); Potassium 5.1 mmol/L (3.4-5.1); Sodium 139 mmol/L (137-145); Total Protein 6.9 g/dL (6.3-8.2)
[2024-06-25 09:16] LABS: Vitamin D 25 Hydroxy (D3) 44.7 ng/mL (30.0-100.0)
[2024-06-25 09:42] LABS: TSH w/ Reflex to FT4 1.51 uIU/mL (0.47-4.68)
== END ==
PROVIDERS: PCP Internal Medicine; Referring Provider Internal Medicine; Visit Provider Internal Medicine
DX: M85.80 Other specified disorders of bone density and structure, unspecified site (principal); Z85.3 Personal history of malignant neoplasm of breast; E55.9 Vitamin D deficiency, unspecified
CPT/HCPCS: 36415; 80053; 82306; 84443

== ENCOUNTER → 2024-12-11 12:29 | Outpatient (CLI) | payer MEDICARE, OTHER, SELFPAY ==
[2024-12-11 12:45] LABS: Hematocrit 43.3 % (36-46); Hemoglobin 14.5 g/dL (12.0-16.0); Mean Corpuscular HGB Conc 33.5 % (30-36); Mean Corpuscular Hemoglobin 30.3 PG (26-34); Mean Corpuscular Volume 90.6 fL (80-100); Platelet Count 265 X10^3/uL (150-400)
[2024-12-11 13:15] LABS: Blood Urea Nitrogen 19 mg/dL (7-17); Calcium 10.0 mg/dL (8.4-10.2); Carbon Dioxide 30 mmol/L (22-32); Chloride 101 mmol/L (98-107); Cholesterol 241 mg/dL (140-199); Estimated Glomerular Filt Rate > 60 mL/min (>60); Glucose 85 mg/dL (70-99); HDL Cholesterol 91 mg/dL (40-60); HEMOLYSIS < 15 (0-50); Potassium 4.4 mmol/L (3.4-5.1); Sodium 139 mmol/L (137-145); Triglycerides 87 mg/dL (35-150)
[2024-12-11 13:44] LABS: TSH w/ Reflex to FT4 < 0.02 uIU/mL (0.47-4.68)
[2024-12-11 14:14] LABS: Free T4, Direct Thyroxine 1.17 ng/dL (0.78-2.19)
== END ==
PROVIDERS: PCP Internal Medicine; Referring Provider Internal Medicine; Visit Provider Internal Medicine
DX: E78.2 Mixed hyperlipidemia (principal); I10 Essential (primary) hypertension
CPT/HCPCS: 36415; 80048; 80061; 84439; 84443; 84450; 85027